=== PATIENT | male | born 1965 | race Hispanic/Latino ===

== ENCOUNTER → 2017-08-14 | Outpatient (CLI) | payer BC ==
[~2017-08-14] MED LIST: LEVO0.5P2 MC; SIMV20TA6 PO
== END ==
LOC: RAH 09:13
PROVIDERS: ATTEND Family Medicine
DX: M47.896 Other spondylosis, lumbar region (principal); G89.29 Other chronic pain
CPT/HCPCS: 72100

== ENCOUNTER → 2021-02-17 | Outpatient (CLI) | payer OTHER ==
[~2021-02-17] MED LIST changes: +SIMV-43 PO; -SIMV20TA6 PO
== END | disposition home or self-care (01) ==
LOC: OIH 14:15
PROVIDERS: ATTEND Family Medicine
DX: Z13.6 Encounter for screening for cardiovascular disorders (principal); R91.8 Other nonspecific abnormal finding of lung field
CPT/HCPCS: 75571

== ENCOUNTER → 2022-12-26 | Outpatient (CLI) | payer BC ==
[~2022-12-26] MED LIST changes: +ACET-2079 PO; +LEVO-70 PO; -LEVO0.5P2 MC; +LEVO50TA11 PO; +MELO-108 PO; -SIMV-43 PO
== END | disposition home or self-care (01) ==
LOC: RAH 13:19
PROVIDERS: ATTEND Internal Medicine Critical Care Medicine
DX: M89.9 Disorder of bone, unspecified (principal)
CPT/HCPCS: 78306; A9503

== ENCOUNTER → 2023-03-20 | Outpatient (CLI) | payer BC ==
[~2023-03-20] MED LIST changes: -ACET-2079 PO; +AEC81 PO; +COLC0.6T73 PO; -LEVO-70 PO; -LEVO50TA11 PO; +LEVO50TA4 PO; +MESA10005 RC; +MESA1S PR
== END | disposition home or self-care (01) ==
LOC: RAH 10:38
PROVIDERS: ATTEND Internal Medicine Gastroenterology
DX: K59.00 Constipation, unspecified (principal); M47.815 Spondylosis without myelopathy or radiculopathy, thoracolumbar region
CPT/HCPCS: 74018

== ENCOUNTER → 2023-03-23 | Outpatient (CLI) | payer BC ==
[~2023-03-23] MED LIST changes: +GADOTERATE MEGLUMINE 10 MMOL/20 ML VIAL IV ONE
== END | disposition home or self-care (01) ==
LOC: RAH 07:32
PROVIDERS: ATTEND Internal Medicine Gastroenterology
DX: K82.8 Other specified diseases of gallbladder (principal); R94.5 Abnormal results of liver function studies; J90 Pleural effusion, not elsewhere classified
CPT/HCPCS: 74183; A9575; S8037

== ENCOUNTER 2023-09-09 03:36 | Emergency (ER) | payer BC ==
[~2023-09-09] VITALS: Ht 167.6 cm; Wt 73.5 kg
[~2023-09-09 03:36] MED LIST changes: -GADOTERATE MEGLUMINE 10 MMOL/20 ML VIAL IV ONE
[2023-09-09] MEDS: HYDROMORPHONE 1 MG INJ IVP ONE (04:19)
[2023-09-09 04:42] VITALS: BP 122/68; PULSE 82; RESP 20; O2SAT 97
== END 2023-09-09 04:49 | disposition home or self-care (01) ==
LOC: EDH 03:36
DX: R07.89 Other chest pain (principal); Z79.899 Other long term (current) drug therapy; Z98.890 Other specified postprocedural states
CPT/HCPCS: 99284; 96374; J1170